=== PATIENT | female | born 1955 | race Two or more races ===

== ENCOUNTER 2017-06-19 07:20 | Day surgery (SDC) | payer OTHER ==
[~2017-06-19 07:20] MED LIST: CATAFLAM50 MG PO; DOLOGEN CAPLET1 TAB PO; MEDROL4 MG PO; PROGESTERONE100 MG PO; PROTONIX20 MG PO; ZANTAC 7575 MG PO
== END 2017-06-19 12:50 | disposition home or self-care (01) ==
LOC: CIR.AMB 07:20
DX: M67.432 Ganglion, left wrist (principal)

== ENCOUNTER 2022-07-06 08:15 | Inpatient (IN) | payer OTHER ==
[~2022-07-06] VITALS: Ht 160 cm; Wt 62.6 kg
[2022-07-06] MEDS ORDERED: CRESTOR5 MG (10:35)
[2022-07-06] MEDS ORDERED: XYZAL5 MG (10:36)
[2022-07-06] MEDS ORDERED: TRAMADOL HCL50 MG (10:36)
[2022-07-12] MEDS ORDERED: ROSUVASTATIN CA10 MG (11:06)
[2022-07-12] MEDS ORDERED: FLONASE16 GM (11:06)
[2022-07-12] MEDS ORDERED: RESTASIS1 EACH (11:06)
[2022-07-12] MEDS ORDERED: LEVOCETIRIZINE D5 MG (11:06)
[2022-07-12] MEDS ORDERED: ZANAFLEX2 MG (11:06)
[2022-07-12] MEDS ORDERED: MONTELUKAST SOD10 MG (11:06)
[2022-07-14] MEDS ORDERED: DUI500 PO (08:28)
[2022-07-14] MEDS ORDERED: ELIQUIS2.5 MG PO (08:28)
[2022-07-14] MEDS ORDERED: PERCOCET 5-3251 EACH PO (08:28)
== END 2022-07-14 11:57 | DRG 470 ==
LOC: SURG 07-11 06:19 → O/R 07-11 06:19 → SURH 07-11 08:15 → SURG 07-11 14:31
PROVIDERS: ADMIT Orthopaedic Surgery; ATTEND Orthopaedic Surgery
PROC: 0SRD0J9 Replacement of Left Knee Joint with Synthetic Substitute, Cemented, Open Approach (ICD-10-PCS; principal; 2022-07-11 11:00)
DX: M17.12 Unilateral primary osteoarthritis, left knee (principal); D62 Acute posthemorrhagic anemia; M81.0 Age-related osteoporosis without current pathological fracture; E78.5 Hyperlipidemia, unspecified

== ENCOUNTER 2025-01-13 07:45 | Inpatient (IN) | payer OTHER ==
[~2025-01-13] VITALS: Ht 160 cm; Wt 65.8 kg
[~2025-01-13 07:45] MED LIST changes: +CRESTOR5 MG; +DUI500 PO; +ELIQUIS2.5 MG PO; +FLONASE16 GM; +LEVOCETIRIZINE D5 MG; +MONTELUKAST SOD10 MG; +PERCOCET 5-3251 EACH PO; +RESTASIS1 EACH; +ROSUVASTATIN CA10 MG; +TRAMADOL HCL50 MG; +XYZAL5 MG; +ZANAFLEX2 MG
[2025-01-13] MEDS ORDERED: CLARITIN10 M1 PO (10:28)
[2025-01-13 10:29] VITALS: BP 122/78
[2025-01-13 10:33] LABS: URINE APPEARANCE Clear; URINE BILIRRUBIN Negative (NEGATIVE); URINE BLOOD Negative; URINE COLOR Yellow; URINE GLUCOSE Negative (NEGATIVE); URINE KETONE Negative (NEGATIVE); URINE LEUKOCYTE Negative; URINE NITRATE Negative; URINE PROTEIN Negative (NEGATIVE); URINE UROBILINOGEN 0.2 E.U./dl
[2025-01-13 10:38] LABS: URINE RBC 3.0 uL (0.0-20.8)
[2025-01-13 10:46] LABS: URINE BACTERIA 1.1 uL (0.0-1933); URINE CAST 0.00 uL (0.0-1.40); URINE EPITHELIAL CELLS 0.6 uL (0.0-38.8); URINE WBC 0.3 uL (0.0-23.2)
[2025-01-13 10:50] LABS: COVID-19 AG POSITIVE (NEGATIVE)
[2025-01-13 10:57] LABS: ALT/SGPT 20.0 U/L (12-78); AST/SGOT 18.0 U/L (15-37); BILIRUBIN TOTAL 0.34 mg/dL (0.3-1.2); BUN CREA RATIO 23.0 (7.0-25.0); CREATININE SERUM 0.53 mg/dL (0.55-1.02); GFR 114.38; GLOBULINA 4.0 G/DL (2.4-3.5); GLUCOSE FASTING 92.0 mg/dL (65-100); OSMOLALITY SERUM 281.0 MOSM/KG (275-295)
[2025-01-13 11:12] LABS: INR 0.96
[2025-01-13 12:23] LABS: BASO % 1.4 % (0.1-1.2); EOS # 0.06 (0.04-0.54); EOS % 1.2 % (0.7-7.0); LYMPH # 1.12 (1.18-3.74); LYMPH % 22.3 % (19.3-53.1); MEAN PLATELET VOLUME 10.20 fl (9.4-12.4); MONO # 0.50 (0.24-0.82); MONO % 10.0 % (4.7-12.5); NEUT # 3.26 (1.56-6.13); NEUT % 64.9 % (34.0-71.1); RED CELL DISTRIBUTION WIDTH 14.0 % (11.6-14.4)
[2025-01-20] MEDS ORDERED: CEFAZOLIN SODIUM 1,000 MG VIAL ONE (10:05)
[2025-01-20] MEDS ORDERED: TRANEXAMIC ACID 100MG/1ML (1000MG) AMPUL ONE (11:14)
[2025-01-20] MEDS ORDERED: ISOPROPYL ALCOHOL 30 ML OUNCE TOP ONE (11:20)
[2025-01-20] MEDS ORDERED: POVIDONE-IODINE 118 ML BOTT TOP ONE (12:54)
[2025-01-20] MEDS ORDERED: TRANEXAMIC ACID 100MG/1ML (1000MG) AMPUL IV ONE (14:45)
[2025-01-20] MEDS ORDERED: MORPHINE SULFATE 4 MG/ML CARTRIDGE IV PRN (15:15)
[2025-01-20] MEDS ORDERED: SODIUM CHLORIDE 0.45 % 1,000 ML IV SCH (15:15)
[2025-01-20] MEDS ORDERED: ONDANSETRON HCL 2 MG/ML VIAL IV PRN (15:15)
[2025-01-20] MEDS ORDERED: OxyCODONE HCL 5 MG TABLET (ROXICODONE) PO PRN (15:15)
[2025-01-20] MEDS ORDERED: MORPHINE SULFATE 4 MG/ML VIAL IV ONE ×2 (15:30→16:50)
[2025-01-20] MEDS ORDERED: GABAPENTIN 300 MG CAPSULE PO SCH (17:00)
[2025-01-20] MEDS ORDERED: CEFAZOLIN SODIUM 1,000 MG VIAL IV SCH (17:00)
[2025-01-20] MEDS ORDERED: ACETAMINOPHEN 500 MG GEL..CAP PO SCH (18:00)
[2025-01-20 20:31] VITALS: BP 138/80; O2SAT 99
[2025-01-21 01:39] VITALS: BP 122/68; O2SAT 99
[2025-01-21 06:50] LABS: BASO % 0.3 % (0.1-1.2); EOS # 0.00 (0.04-0.54); EOS % 0.0 % (0.7-7.0); LYMPH # 0.75 (1.18-3.74); LYMPH % 10.4 % (19.3-53.1); MEAN PLATELET VOLUME 10.40 fl (9.4-12.4); MONO # 0.52 (0.24-0.82); MONO % 7.2 % (4.7-12.5); NEUT # 5.88 (1.56-6.13); NEUT % 81.8 % (34.0-71.1); RED CELL DISTRIBUTION WIDTH 13.3 % (11.6-14.4)
[2025-01-21] MEDS ORDERED: SENNOSIDES 1 TAB TABLET PO SCH (09:00)
[2025-01-21] MEDS ORDERED: ENALAPRILAT DIHYDRATE 1.25 MG/ML VIAL IV PRN (09:00)
[2025-01-21] MEDS ORDERED: APIXABAN 2.5 MG TABLET PO SCH (09:00)
[2025-01-21 09:17] VITALS: BP 107/59; O2SAT 99
[2025-01-21 11:44] LABS: COVID-19 AG NEGATIVE (NEGATIVE)
[2025-01-21] MEDS ORDERED: XARELTO10 MG PO (11:44)
[2025-01-21] MEDS ORDERED: DUI500 PO (11:44)
[2025-01-21] MEDS ORDERED: PERCOCET 5-3251 EACH PO (11:44)
[2025-01-21] MEDS ORDERED: SOD FERRIC GLUC COMPLX/SUCROSE 62.5 MG/5 ML AMPUL IV SCH (12:00)
[2025-01-21 12:16] LABS: ALT/SGPT 32.0 U/L (12-78); AST/SGOT 39.0 U/L (15-37); BILIRUBIN TOTAL 0.44 mg/dL (0.3-1.2); BUN CREA RATIO 10.0 (7.0-25.0); CREATININE SERUM 0.87 mg/dL (0.55-1.02); GFR 64.56; GLOBULINA 3.3 G/DL (2.4-3.5); GLUCOSE FASTING 113.0 mg/dL (65-100); OSMOLALITY SERUM 281.0 MOSM/KG (275-295)
[2025-01-21] MEDS ORDERED: Cyanocobalamin/Mecobalamin 1 TAB.SL SL NR (12:25)
[2025-01-21 16:00] VITALS: BP 130/68; O2SAT 98
[2025-01-21] MEDS ORDERED: ROSUVASTATIN CALCIUM 10 MG TABLET PO SCH (17:00)
[2025-01-22 01:39] VITALS: BP 112/73; O2SAT 100
[2025-01-22 06:58] LABS: BASO % 0.2 % (0.1-1.2); EOS # 0.02 (0.04-0.54); EOS % 0.2 % (0.7-7.0); LYMPH # 0.91 (1.18-3.74); LYMPH % 8.6 % (19.3-53.1); MEAN PLATELET VOLUME 10.70 fl (9.4-12.4); MONO # 0.71 (0.24-0.82); MONO % 6.7 % (4.7-12.5); NEUT # 8.92 (1.56-6.13); NEUT % 83.9 % (34.0-71.1); RED CELL DISTRIBUTION WIDTH 13.6 % (11.6-14.4)
[2025-01-22 08:00] VITALS: BP 94/61; O2SAT 97
[2025-01-22] MEDS ORDERED: Cyanocobalamin/Mecobalamin 1 TAB.SL SL SCH (09:00)
[2025-01-22] MEDS ORDERED: IRON FUM,PS/FOLIC ACID/VITC/B3 1 CAP CAPSULE PO SCH (09:00)
== END 2025-01-22 16:28 | disposition home or self-care (01) | DRG 470 ==
LOC: SURG 01-20 07:45 → SURH 01-20 09:00 → O/R 01-20 09:00 → SURG 01-20 10:15 → SURH 01-20 11:52
PROVIDERS: ADMIT Orthopaedic Surgery; ATTEND Orthopaedic Surgery
PROC: 0MBL0ZZ Excision of Right Hip Bursa and Ligament, Open Approach (ICD-10-PCS; 2025-01-20)
PROC: 0SR90JZ Replacement of Right Hip Joint with Synthetic Substitute, Open Approach (ICD-10-PCS; principal; 2025-01-20 10:15)
DX: M16.11 Unilateral primary osteoarthritis, right hip (principal)

== ENCOUNTER → 2025-01-16 12:15 | Outpatient (CLI) | payer OTHER ==
[~2025-01-16 12:15] MED LIST changes: +CLARITIN10 M1 PO
[2025-01-16 13:20] LABS: COVID-19 AG POSITIVE (NEGATIVE)
== END | disposition home or self-care (01) ==
LOC: LAB 12:15
PROVIDERS: ATTEND Internal Medicine
DX: R05.9 Cough, unspecified (principal)

== ENCOUNTER → 2025-01-20 07:26 | Outpatient (CLI) | payer OTHER ==
[~2025-01-20 07:26] MED LIST changes: +XARELTO10 MG PO
[2025-01-20 08:20] LABS: COVID-19 AG NEGATIVE (NEGATIVE)
== END | disposition home or self-care (01) ==
LOC: LAB 07:26
PROVIDERS: ATTEND Internal Medicine
DX: Z20.822 Contact with and (suspected) exposure to COVID-19 (principal)